=== PATIENT | male | born 1980 | race Caucasian/White ===

== ENCOUNTER 2022-03-13 20:45 | Emergency (ER) | payer OTHER ==
[2022-03-13] MEDS ORDERED: TETANUS & DIPHTHERIA TOX,ADULT 0.5 ML VIAL ONE (21:26)
[2022-03-13] MEDS ORDERED: LIDOCAINE 1% MPF 5 ML VIAL ONE (21:26)
--- NOTE | 2022-03-13 21:54 | ER ---
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 Coronavirus screen: At this time, the client does not indicate any symptoms associated with coronavirus-19. Ebola Screen: No symptoms or risks identified at this time. Initial Sepsis Screen: Does the patient meet any 2 criteria? No. Patient's initial sepsis screen is negative. Does the patient have a suspected source of infection? No. Patient's initial sepsis screen is negative. Risk Assessment: Do you want to hurt yourself or someone else? Patient reports no desire to harm self or others. Onset of symptoms was March 13, 2022. Care prior to arrival: dressing applied to left anterior forearm. 21:05 Method Of Arrival: Ambulatory 7 21:05 Acuity: KARIS 4 bm7 Triage Assessment: 21:07 General: Appears in no apparent distress. uncomfortable, Behavior is calm, cooperative, bm7 appropriate for age. Pain: Complains of pain in left arm. EENT: No deficits noted. No signs and/or symptoms were reported regarding the EENT system. Neuro: No deficits noted. Cardiovascular: No deficits noted. Respiratory: No deficits noted. GI: No deficits noted. No signs and/or symptoms were reported involving the gastrointestinal system. : No deficits noted. No signs and/or symptoms were reported regarding the genitourinary system. Derm: Skin is intact, is healthy with good turgor, Skin is dry, Skin is normal, Skin temperature is warm. Musculoskeletal: Reports pain in left arm. Injury Description: Laceration sustained to palmar aspect of left forearm is jagged, 0.5 to 2.5 cm long, a small amount of bleeding noted at this time. Historical: - Allergies: 21:07 Penicillins; bm7 - Home Meds: 21:07 Singulair 10 mg Oral tab 1 tab once daily [Active]; bm7 - PMHx: 21:07 allergies; bm7 - PSHx: 21:07 None; bm7 - Immunization history:: Adult Immunizations up to date, Last tetanus immunization: unknown. - Social history:: Smoking status: Patient denies any tobacco usage or history of. Screenin:10 Abuse screen: Denies threats or abuse. Denies injuries from another. Nutritional kb3 screening: No deficits noted. Tuberculosis screening: No symptoms or risk factors identified. Fall Risk None identified. Assessment: 21:10 General: See triage note. kb3 Vital Signs: 21:03 BP 147 / 90; Pulse 70; Resp 16; Temp 98.3(TE); Pulse Ox 100% on R/A; Weight 113.4 kg bm7 (R); Height 5 ft. 10 in. (177.80 cm); Pain 7/10; 21:03 Body Mass Index 35.87 (113.40 kg, 177.80 cm) bm7 ED Course: 20:47 Patient arrived in ED. [email or web address] 21:01 [facility]C [facility]. kb 21:01 Joseph Johnston MD is Attending Physician. kb 21:03 Arm band placed on right wrist. bm7 21:07 Triage completed. bm7 21:10 Patient has correct armband on for positive identification. Bed in low position. Call kb3 light in reach. 21:10 Assist provider with laceration repair Set up tray. Performed by Buffy GRIMM kb3 Dressed with 4X4s, Starla, Patient tolerated well. Patient did not have IV access during this emergency room visit. 21:49 Ami Harper, RN is Primary Nurse. kb3 Administered Medications: 21:26 Drug: Tetanus-Diphtheria Toxoid Adult 0.5 ml {Slip Operator: [employer]. Exp: bm7 11/24/2023. Lot #: [id number]. } Route: IM; Site: right deltoid; 22:05 Follow up: Response: No adverse reaction kb3 21:30 Drug: Lidocaine (1 %) 1 vials {Note: Administered by CORE LAYER MACHINE OPERATOR for laceration reppair.} kb3 Volume: 5 ml; Route: Infiltration; 22:05 Follow up: Response: No adverse reaction kb3 Medication: 21:10 VIS not applicable for this client. kb3 Outcome: 21:51 Discharged to home kb3 21:51 Condition: stable 21:51 Discharge instructions given to patient, Instructed on discharge instructions, follow up and referral plans. medication usage, wound care, Demonstrated understanding of instructions, follow-up care, medications, wound care. 21:54 Discharge ordered by . fannie 22:05 Patient left the ED. kb3 Signatures: Buffy Palencia, OJ-C AIRLINE RADIO OPERATOR-Eloise Wells, RN RN bm7 Ruth [email or web address] Ami Harper, RN RN kb3
--- NOTE | 2022-03-13 21:55 | EDPHYS ---
Physician Documentation [facility] Name: Jordan Sherman Age: 41 yrs Sex: Male : 1980 Arrival Date: 03/13/2022 Time: 20:47 Bed 12 Private MD: ALFRED Physician Joseph Johnston HPI: 03/13 21:50 This 41 yrs old Male presents to ER via Ambulatory with complaints of Arm Injury. 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 The injury was accidental. The laceration(s) is(are) located on the dorsal aspect of left forearm. Onset: The symptoms/episode began/occurred just prior to arrival. Associated signs and symptoms: The patient has no apparent associated signs or symptoms. The patient has not experienced similar symptoms in the past. The patient has not recently seen a physician. Historical: - Allergies: 21:07 Penicillins; bm7 - Home Meds: 21:07 Singulair 10 mg Oral tab 1 tab once daily [Active]; bm7 - PMHx: 21:07 allergies; bm7 - PSHx: 21:07 None; bm7 - Immunization history:: Adult Immunizations up to date, Last tetanus immunization: unknown. - Social history:: Smoking status: Patient denies any tobacco usage or history of. ROS: 21:49 Constitutional: Negative for fever, chills, and weight loss. kb 21:49 Skin: Positive for laceration(s), of the dorsal aspect of left forearm. 21:49 All other systems are negative. Exam: 21:49 Constitutional: This is a well developed, well nourished patient who is awake, alert, kb and in no acute distress. Head/Face: Normocephalic, atraumatic. ENT: Moist Mucous membranes Respiratory: Respirations even and unlabored. No increased work of breathing. Talking in full sentences MS/ Extremity: Pulses equal, no cyanosis. Neurovascular intact. Full, normal range of motion. Neuro: Awake and alert, GCS 15, oriented to person, place, time, and situation. Moves all extremities. Normal gait. Psych: Awake, alert, with orientation to person, place and time. Behavior, mood, and affect are within normal limits. 21:49 Skin: injury, laceration(s), the wound is approximately 2.5 cm(s), of the dorsal aspect of left forearm, that can be described as clean, no foreign body, irregular, without bleeding. Vital Signs: 21:03 BP 147 / 90; Pulse 70; Resp 16; Temp 98.3(TE); Pulse Ox 100% on R/A; Weight 113.4 kg bm7 (R); Height 5 ft. 10 in. (177.80 cm); Pain 7/10; 21:03 Body Mass Index 35.87 (113.40 kg, 177.80 cm) bm7 Laceration: 21:48 Wound Repair of 2.5cm ( 1.0in ) subcutaneous laceration to dorsal aspect of left kb forearm. Irregularly shaped.. Skin/tissue flap noted.. Distal neuro/vascular/tendon intact. Anesthesia: Wound infiltrated with 3 mls of 1% lidocaine. Wound prep: Extensive cleansing with hibiclenz by me, Wound irrigation with saline by me. Skin closed with 5 5-0 Prolene using simple sutures and sterile technique. Patient tolerated well. MDM: 21:01 Patient medically screened. kb 21:48 Data reviewed: vital signs, nurses notes. Data interpreted: Pulse oximetry: on room air kb is 100 %. Interpretation: normal. Counseling: I had a detailed discussion with the patient and/or guardian regarding: the historical points, exam findings, and any diagnostic results supporting the discharge/admit diagnosis, the need for outpatient follow up, a family practitioner, to return to the emergency department if symptoms worsen or persist or if there are any questions or concerns that arise at home. 03/13 21:02 Order name: Dressing - Wound; Complete Time: 21:48 kb 03/13 21:02 Order name: Gloves, Sterile; Complete Time: 21:48 kb 03/13 21:02 Order name: Prolene, Sutures; Complete Time: 21:48 kb 03/13 21:02 Order name: Setup Suture Tray; Complete Time: 21:48 kb Administered Medications: 21:26 Drug: Tetanus-Diphtheria Toxoid Adult 0.5 ml {Technical Publications Manager: [employer]. Exp: bm7 11/24/2023. Lot #: [id number]. } Route: IM; Site: right deltoid; 22:05 Follow up: Response: No adverse reaction kb3 21:30 Drug: Lidocaine (1 %) 1 vials {Note: Administered by AUTO TESTER for laceration reppair.} kb3 Volume: 5 ml; Route: Infiltration; 22:05 Follow up: Response: No adverse reaction kb3 Disposition Summary: 03/13/22 21:54 Discharge Ordered Location: Home kb Condition: Stable kb Diagnosis - Laceration without foreign body of left forearm kb Followup: kb - With: Emergency Department - When: As needed - Reason: Worsening of condition Followup: kb - With: Private Physician - When: 2 - 3 days - Reason: Recheck today's complaints, Continuance of care, Re-evaluation by your physician Discharge Instructions: - Discharge Summary Sheet kb - Laceration Care, Adult, [id number] kb Forms: - Medication Reconciliation Form kb - Thank You Letter kb - Antibiotic Education kb - Prescription Opioid Use kb Signatures: Buffy Palencia FNP-C FNP-Eloise Wells RN RN bm7 Ami Harper, RN RN kb3
[2022-03-14 01:33] VITALS: BP 147/90; TEMP 98.3; O2SAT 100
== END 2022-03-13 22:05 | disposition home or self-care (01) ==
LOC: ER 20:45
PROC: 0JQH0ZZ Repair Left Lower Arm Subcutaneous Tissue and Fascia, Open Approach (ICD-10-PCS; principal; 2022-03-13)
DX: S51.812A Laceration without foreign body of left forearm, initial encounter (principal); Z23 Encounter for immunization; Z88.0 Allergy status to penicillin
CPT/HCPCS: 90714